=== PATIENT | male | born 1945 | race Caucasian/White ===

== ENCOUNTER 2017-10-17 06:44 | Day surgery (SDC) | payer MEDICARE ==
[2017-10-13 14:50] VITALS: BP 138/67
[2017-10-13 15:10] LABS: BASOPHILS % (AUTO) 1.3 % (0.0-5.0); EOSINOPHILS % (AUTO) 6.9 % (0.0-8.0); HEMATOCRIT 38.4 % (42-54); LYMPHOCYTES % (AUTO) 43.8 % (21.0-51.0); MEAN CORPUSCULAR HEMOGLOBIN 31.9 pg (27.0-33.0); MEAN CORPUSCULAR HGB CONC 35.4 g/dL (32.0-36.0); MEAN CORPUSCULAR VOLUME 89.9 fL (79-99); MONOCYTES % (AUTO) 7.1 % (3.0-13.0); NEUTROPHILS % (AUTO) 40.9 % (40.0-77.0); PLATELET COUNT (AUTO) 263 K/uL (130-400); RED BLOOD CELL COUNT(AUTO) 4.27 MIL/uL (4.50-6.20); WHITE BLOOD COUNT (AUTO) 5.5 K/uL (4.8-10.8)
[2017-10-13 15:18] LABS: CREATININE 1.3 mg/dL (0.5-1.5); POTASSIUM 4.7 mmol/L (3.5-5.1)
[2017-10-17] VITALS (11 sets, daily range): BP systolic 121–146; BP diastolic 53–76
[~2017-10-17] VITALS: Ht 177.8 cm; Wt 83.1 kg
[~2017-10-17 06:44] MED LIST: CETI-101 PO; MONT10TA21 PO
[2017-10-17] MEDS ORDERED: LACTATED RINGERS 1000ML 1,000 ML IV ONE (07:18)
[2017-10-17] MEDS ORDERED: MIDAZOLAM HCL 1 MG/ML 2ML VIAL ONE (09:03)
[2017-10-17] MEDS ORDERED: PROPOFOL 10 MG/ML 20ML VIAL IV ONE (09:03)
[2017-10-17] MEDS ORDERED: FENTANYL CITRATE PF 50 MCG/1 ML 2ML VIAL ONE (09:03)
[2017-10-17] MEDS ORDERED: LIDOCAINE PF 2% 5ML ABBOJECT ONE (09:09)
== END 2017-10-17 10:45 | disposition home or self-care (01) ==
LOC: DAH 06:44
PROVIDERS: ATTEND Otolaryngology Plastic Surgery within the Head & Neck
DX: D23.39 Other benign neoplasm of skin of other parts of face (principal); Z79.899 Other long term (current) drug therapy
CPT/HCPCS: 14040; 36415; 80048; 85025; 88304; A4606; J2001; J2250; J2704; J3010; J7120